=== PATIENT | male | born 1950 | race Caucasian/White ===

== ENCOUNTER 2018-06-11 20:33 | Emergency (ER) | payer MEDICARE, OTHER ==
[~2018-06-11] VITALS: Ht 165.1 cm; Wt 67.6 kg
[2018-06-11 20:36] VITALS: Ht 165.1 cm; Wt 67.6 kg
[2018-06-11] MEDS ORDERED: KETOROLAC 30 MG INJ IV STA (22:59)
[2018-06-11] MEDS ORDERED: IBUP-1542 PO (23:00)
--- NOTE | 2018-06-11 23:02 | ERD ---
ER Documentation Chief Complaint Chief Complaint FLANK PAIN X1WK; NO PAIN/BLOOD IN URINATION; NO N/V HPI Patient is a 67-year-old male with no medical problems who presents with flank pain. The patient said that he started before Audra with anxiety in his chest and shaking in his hands. He has left-sided flank pain which started last week. It started radiating to the right side yesterday. He has been urinating normally. He has no fevers. He has no pain currently at this time. Upon review of old medical records this is the patient's first visit to the emergency department. He does not currently have a primary doctor. ROS All systems reviewed and are negative except as per history of present illness. Medications Home Meds Active Scripts Ibuprofen* (Motrin*) 600 Mg Tab, 600 MG PO Q6H PRN for PAIN AND OR ELEVATED TEMP, #30 TAB Prov:ALEXIA LEHMAN MD 06/11/18 Allergies Allergies: Coded Allergies: No Known Allergy (Unverified , 06/11/18) PMhx/Soc Medical and Surgical Hx: pt denies Medical Hx, pt denies Surgical Hx Hx Alcohol Use: No Hx Substance Use: No Hx Tobacco Use: No Smoking Status: Unknown if ever smoked FmHx Family History: diabetes Physical Exam Vitals Vital Signs Date Temp Pulse Resp B/P (MAP) Pulse Ox O2 O2 Flow FiO2 Time Delivery Rate 06/11/18 97.5 69 18 192/68 97 20:36 (109) Physical Exam Const: No acute distress Head: Atraumatic Eyes: Normal Conjunctiva ENT: Normal External Ears, Nose and Mouth. Neck: Full range of motion. No meningismus. Resp: Clear to auscultation bilaterally Cardio: Regular rate and rhythm, no murmurs Abd: Soft, non tender, non distended. Normal bowel sounds Skin: No petechiae or rashes Back: No midline or flank tenderness Ext: No cyanosis, or edema Neur: Awake and alert Psych: Normal Mood and Affect Result Diagram: 06/11/18211606/11/182116 Results 24 hrs Laboratory Tests Test 06/11/18 21:10 06/11/18 21:17 Urine Color YELLOW Urine Clarity CLOUDY Urine pH 6.0 Urine Specific Noti 1.008 Urine Ketones NEGATIVE mg/dL Urine Nitrite NEGATIVE mg/dL Urine Bilirubin NEGATIVE mg/dL Urine Urobilinogen NEGATIVE mg/dL Urine Leukocyte Esterase NEGATIVE Gwendolyn/ul Urine Microscopic RBC 8 /HPF Urine Microscopic WBC 0 /HPF Urine Hemoglobin 2+ mg/dL Urine Glucose NEGATIVE mg/dL Urine Total Protein NEGATIVE mg/dl White Blood Count 7.1 10^3/ul Red Blood Count 4.29 10^6/ul Hemoglobin 13.2 g/dl Hematocrit 38.2 % Mean Corpuscular Volume 89.0 fl Mean Corpuscular Hemoglobin 30.8 pg Mean Corpuscular Hemoglobin Concent 34.6 g/dl Red Cell Distribution Width 11.9 % Platelet Count 246 10^3/UL Mean Platelet Volume 9.0 fl Immature Granulocytes % 0.300 % Neutrophils % 55.8 % Lymphocytes % 32.2 % Monocytes % 9.3 % Eosinophils % 2.0 % Basophils % 0.4 % Nucleated Red Blood Cells % 0.0 /100WBC Immature Granulocytes # 0.020 10^3/ul Neutrophils # 3.9 10^3/ul Lymphocytes # 2.3 10^3/ul Monocytes # 0.7 10^3/ul Eosinophils # 0.1 10^3/ul Basophils # 0.0 10^3/ul Nucleated Red Blood Cells # 0.0 10^3/ul Sodium Level 135 mmol/L Potassium Level 4.1 mmol/L Chloride Level 104 mmol/L Carbon Dioxide Level 24 mmol/L Anion Gap 7 Blood Urea Nitrogen 17 mg/dl Creatinine 1.13 mg/dl Est Glomerular Filtrat Rate mL/min > 60 mL/min Glucose Level 104 mg/dl Calcium Level 8.7 mg/dl Total Bilirubin 0.2 mg/dl Direct Bilirubin 0.00 mg/dl Indirect Bilirubin 0.2 mg/dl Aspartate Amino Transf (AST/SGOT) 25 IU/L Alanine Aminotransferase (ALT/SGPT) 20 IU/L Alkaline Phosphatase 75 IU/L Troponin I < 0.012 ng/ml Total Protein 6.6 g/dl Albumin 3.9 g/dl Globulin 2.70 g/dl Albumin/Globulin Ratio 1.44 Lipase 544 U/L Current Medications Medications Dose Sig/Sangita Start Time Status Last (Trade) Ordered Route PRN Stop Time Admin Dose Reason Admin Ketorolac 30 mg ONCE STAT 06/11/18 DC 06/11/18 Tromethamine IV 22:59 23:06 (Toradol) 06/11/18 23:00 Procedures/MDM EKG read by me: Rate/Rhythm: Sinus bradycardia rate of 54 Intervals: Normal Impression: Bradycardia without ischemia CT abdomen pelvis read by radiology. Patient is a 67-year-old male who presents with flank pain bilaterally. Laboratory studies showed a slightly elevated lipase but I doubt pancreatitis at this time as the lipase is not more than [address] abdomen and pelvis was basically negative for any acute process. I doubt appendicitis, cholecystitis, pancreatitis, or bowel obstruction. I doubt pyelonephritis. The patient will be given Toradol for pain and will be discharged with a prescription for ibuprofen. The patient does not currently have a primary doctor so I will give information for the local clinics and the patient should follow-up within 24-48 hours. He can return for any worsening symptoms. Departure Diagnosis: Primary Impression: Flank pain Condition: Fair Patient Instructions: Flank Pain, Uncertain Cause [facility] Usted se king hecho un examen mdico de control que le indica que no est en moriah condicin que requiera tratamiento urgente en el Departamento de Emergencia. Un estudio ms profundo y el tratamiento de pérez condicin pueden esperar sin ningn riesgo hasta que usted sea atendida/o en el consultorio de pérez mdico o moriah clnica. Es responsabilidad suya arreglar moriah juan para el seguimiento del abby. MANEJO DE CONDICIONES NO URGENTES EN EL FUTURO 1) Si usted tiene un mdico de atencin primaria: Usted debera llamar a pérez mdico de atencin primaria antes de venir al departamento de emergencia. Despus de las horas de consultorio, pérez doctor o pérez asociado/a est disponible por telfono. El mdico o enfermero de ulises en el servicio telefnico puede asesorarle por niurka medio para atender el problema, o abby contrario se puede programar moriah juan. 2) Si usted no tiene un mdico de atencin primaria: Llame al mdico o clnica de referencia que aparece abajo rohini las horas de consultorio para hacer moriah juan para que le vean. CLINICAS: [facility] [phone] [facility] [phone] [facility] [phone] [place] [id number] [phone] [place] [id number] [phone] [place] [id number] [phone] Additional Instructions: Llame al doctor MAANA y marissa moriah JUAN PARA DENTRO DE 1-2 MEHTA.Dgale a la secretaria que nosotros le instruimos hacer esta juan.Avise o llame si pérez condicin se empeora antes de la juan. Regresa aqui si peor o no mejor. ALEXIA LEHMAN MD Jun 11, 2018 23:02
[2018-06-11 23:30] VITALS: BP 153/86; PULSE 58; RESP 13
== END 2018-06-11 23:30 | disposition home or self-care (01) ==
LOC: E/R 20:33
DX: R10.9 Unspecified abdominal pain (principal)
CPT/HCPCS: 36415; 74176; 80053; 81001; 83690; 84484; 85025; 93005; 96374; 99285; J1885